=== PATIENT | male | born 2000 | race Caucasian/White ===

== ENCOUNTER 2021-11-24 18:22 | Outpatient (CLI) | payer OTHER ==
[2021-11-24 18:55] VITALS: BP 135/84
[2021-11-24] MEDS ORDERED: QUEtiapine FUMARATE 25 MG TABLET PO ONE (21:45)
[2021-11-25] MEDS ORDERED: QUET25TA PO (00:26)
[2021-11-25] MEDS ORDERED: SERT-162 PO (00:27)
== END 2021-11-24 22:25 | disposition home or self-care (01) ==
LOC: CSU 18:22
PROVIDERS: ATTEND Psychiatry & Neurology Psychiatry
DX: F06.31 Mood disorder due to known physiological condition with depressive features (principal)
CPT/HCPCS: 90792; Z7610

== ENCOUNTER 2024-12-18 16:14 | Emergency (ER) | payer MEDICAID, OTHER ==
[~2024-12-18] VITALS: Ht 177.8 cm; Wt 104.5 kg
[~2024-12-18 16:14] MED LIST: QUET25TA PO; SERT-162 PO
[2024-12-18 16:25] VITALS: TEMP 97.7
[2024-12-18] MEDS ORDERED: DULO40CA2 PO (17:05)
[2024-12-18] MEDS ORDERED: LAMO-24 PO (17:05)
[2024-12-18 17:25] LABS: BASOPHILS % (AUTO) 1.2 % (0.0-2.0); EOSINOPHILS % (AUTO) 2.1 % (1.0-6.0); HEMATOCRIT 45.2 % (41-53); HEMOGLOBIN 15.1 g/dL (13.5-17.5); LYMPHOCYTES # (AUTO) 1.9 K/uL (1.0-4.8); LYMPHOCYTES % (AUTO) 22.8 % (22.0-44.0); MEAN CORPUSCULAR HEMOGLOBIN 30.2 pg (26.0-34.0); MEAN CORPUSCULAR HGB CONC 33.5 G/dL (31.0-37.0); MEAN CORPUSCULAR VOLUME 90 fL (80-100); MONOCYTES # (AUTO) 0.5 K/uL (0.1-1.0); MONOCYTES % (AUTO) 6.5 % (2.0-9.0); NEUTROPHILS # (AUTO) 5.6 K/uL (1.8-7.7); NEUTROPHILS % (AUTO) 67.4 % (40.0-70.0); PLATELET COUNT (AUTO) 326 K/uL (150-450); RED BLOOD CELL COUNT(AUTO) 5.01 MIL/uL (4.50-5.90); RED CELL DISTRIBUTION WIDTH 12.9 % (11.5-14.5); WHITE BLOOD COUNT (AUTO) 8.4 K/uL (4.5-11.0)
[2024-12-18 17:25] LABS: APPEARANCE,URINE CLEAR (CLEAR); BILIRUBIN,URINE NEGATIVE (NEGATIVE); COLOR,URINE YELLOW (YELLOW); GLUCOSE, URINE (UA) NEGATIVE (NEGATIVE); KETONES,URINE 40-60 mg/dL (NEGATIVE); LEUKOCYTE ESTERASE ,URINE NEGATIVE (NEGATIVE); NITRATE,URINE NEGATIVE (NEGATIVE); OCCULT BLOOD,URINE NEGATIVE (NEGATIVE); PROTEIN,URINE 30-70 mg/dL (NEGATIVE); SPECIFIC GRAVITIY, URINE 1.032 (1.003-1.030); UROBILINOGEN,URINE <=1.0 mg/dL (<=1.0)
[2024-12-18 17:30] LABS: ANION GAP 7 mmol/L (8-16); CALCIUM, TOTAL 9.1 mg/dL (8.8-10.5); CARBON DIOXIDE 30 mmol/L (22-29); CHLORIDE 103 mmol/L (98-107); GLOMERULAR FILTR. RATE CALC > 60 mL/min (>60); GLUCOSE,RANDOM 94 mg/dL (70-110); LIPASE 23 U/L (16-77); POTASSIUM 3.9 mmol/L (3.5-5.1); SODIUM SERUM 139 mmol/L (136-145); UREA NITROGEN, BLOOD 10 mg/dL (7-18)
[2024-12-18] MEDS ORDERED: SODIUM CHLORIDE 0.9% 100 ML ONE (17:35)
[2024-12-18] MEDS ORDERED: IOHEXOL 350 MG/ML 100 ML VIAL ONE (17:35)
[2024-12-18] MEDS ORDERED: 0.9% SODIUM CHLORIDE 10 ML SYRINGE IVP ONE (17:35)
[2024-12-18] MEDS: SODIUM CHLORIDE 0.9% 1,000 ML IV ONE (17:36)
[2024-12-18] MEDS: FAMOTIDINE 20 MG/2 ML VIAL IVP ONE (17:36)
[2024-12-18] MEDS: KETOROLAC TROMETHAMINE 30 MG/ML VIAL IVP ONE (17:36)
[2024-12-18] MEDS: ONDANSETRON HCL 4 MG/2 ML VIAL IVP ONE (17:36)
[2024-12-18] MEDS: MAG HYDROX/ALUMINUM HYD/SIMETH 30 ML SUSPENSION UDCUP PO ONE (17:36)
[2024-12-18 17:48] LABS: ALBUMIN 4.3 g/dL (3.4-5.0); BILIRUBIN,DIRECT 0.2 mg/dL (0.00-0.20); BILIRUBIN,TOTAL 0.9 mg/dL (0.1-1.0); TOTAL PROTEIN, SERUM 7.5 g/dL (6.4-8.2)
[2024-12-18 19:48] VITALS: BP 130/72; PULSE 87; RESP 18; O2SAT 99
== END 2024-12-18 19:58 | disposition home or self-care (01) ==
LOC: EMS 16:14
DX: R10.33 Periumbilical pain (principal); R35.0 Frequency of micturition; R11.2 Nausea with vomiting, unspecified
CPT/HCPCS: 99285; 74177; 96374; 96375; 96361; 80048; 80076; 81003; 83690; 85025; 36415; J1885; Q9967; J3490; J2405; J7030; J7050